=== PATIENT | male | born 1960 | race Caucasian/White ===

== ENCOUNTER 2019-09-28 10:44 | Day surgery (SDC) | payer OTHER ==
[2019-09-27 10:40] VITALS: BMI 26.7
[2019-09-28] MEDS ORDERED: MIDAZOLAM HCL 2 MG/2 ML SINGLE DOSE VIAL ONE ×2 (12:22→12:29)
[2019-09-28] MEDS ORDERED: ceFAZolin SODIUM 1 GM VIAL IVPB ONE (12:28)
--- NOTE | 2019-09-28 12:40 | OP ---
Operative Note - Note: Operative Date: 09/28/19 Pre-Operative Diagnosis: Rigth renal calculus Operation: Right renal calculus Findings: Right 9 mm renal pelvic Surgeon: Ananth Hillman MD. Anesthesia: General Operative Report Dictated: Yes
[2019-09-28] MEDS ORDERED: fentaNYL CITRATE 250 MCG/5 ML VIAL ONE (12:41)
[2019-09-28] MEDS ORDERED: ELECTROLYTE-148 SOLN 1,000 ML IV SCH (12:45)
[2019-09-28 13:50] VITALS: BP 160/99; PULSE 93; TEMP 98.5
--- NOTE | 2019-09-28 14:00 | OP ---
DATE OF OPERATION: 09/28/2019 PREOPERATIVE DIAGNOSIS: Right renal calculus. POSTOPERATIVE DIAGNOSIS: Right renal calculus. PROCEDURE: Right lithotripsy. HISTORY: This is a very pleasant 58-year-old gentleman with a long history of renal calculi status post prior ureteroscopy. Recent imaging revealed a 9 x 7-mm right renal pelvic stone as well as some smaller peripheral 2- to 3-mm fragments. After discussing treatment options, the patient elected to undergo the above-stated procedure. Risks and benefits of treatment and alternative treatments were discussed in detail. All questions were answered. BRIEF OPERATIVE NOTE: Patient was brought to the operative suite, placed in the supine position. The stone was localized using 3D fluoroscopy as well as ultrasonography. A time-out was performed. At this time, 2 g of Ancef were given. Sedation was administered. Approximately 2500 shocks were delivered in electromagnetic fashion. Patient tolerated procedure well. The stone appeared to fragment radiographically. Patient brought to recovery room in stable and satisfactory condition. YARELIS SIMPSON M.D. [id number]
== END 2019-09-28 14:20 | disposition home or self-care (01) ==
LOC: JASU-SURG 10:44
PROVIDERS: ATTEND Urology
PROC: 0TF3XZZ Fragmentation in Right Kidney Pelvis, External Approach (ICD-10-PCS; principal; 2019-09-28 12:00)
DX: N20.0 Calculus of kidney (principal)